=== PATIENT | female | born 1975 | race African-American/Black ===

== ENCOUNTER 2018-09-23 11:54 | Emergency (ER) | payer OTHER ==
[~2018-09-23] VITALS: Ht 177.8 cm; Wt 92.1 kg
[~2018-09-23 11:54] MED LIST: B-100 COMPLEX1 EAC1 PO; EVENING PRIMRO500 MG PO; GINSENG EXTRACT50 MG PO; IRON159 MG PO; MULTIVITAMINS PO; PROZAC
[2018-09-23] MEDS ORDERED: NIFEDIPINE ER30 M1 PO (12:03)
[2018-09-23 13:16] LABS: HEMATOCRIT 38.6 % (37.0-47.0); HEMOGLOBIN 13.3 gm/dL (12.0-15.0); MCHC 34.5 g/dL (28.0-37.0); MCV 89.8 fL (80.0-100.0); PLATELET COUNT 365 thou/uL (150-400); RDW 13.5 % (10.5-14.5); WBC 4.3 thou/uL (4.0-11.0)
[2018-09-23 13:19] LABS: ANION GAP 10 mmol/L (7-16); BUN 6 mg/dL (7-18); CALCIUM 9.5 mg/dL (8.5-10.1); CHLORIDE 104 mmol/L (98-107); CO2 24 mmol/L (21-32); CREATININE 0.7 mg/dL (0.6-1.0); GLUCOSE 90 mg/dL (74-106); POTASSIUM 3.9 mmol/L (3.5-5.1); SODIUM 138 mmol/L (136-145)
[2018-09-23 13:28] LABS: SGOT 21 U/L (15-37); SGPT 32 U/L (30-65); TOTAL BILIRUBIN 0.3 mg/dL (<0.1-1.0); TOTAL PROTEIN 8.3 g/dL (6.4-8.2); TROPONIN-I <0.06 ng/mL (<0.06)
[2018-09-23 13:51] LABS: ABSOLUTE NEUTROPHILS 1.5 thou/uL (1.4-8.2)
[2018-09-23 15:57] VITALS: BP 129/61
--- NOTE | 2018-09-24 08:19 | EKG ---
[place] [address] [facility] [place] [address] ELECTROCARDIOGRAM REPORT Name: DAVION CHANG [id number] Admission: 09/23/18 Attend Phys: Discharge: 09/23/18 Date of : 75 Report #: [id number] THIS REPORT FOR: //name// [facility] ED Test Date: 2018-09-23 Test Time: 12:06:18 Pat Name: DAVION CHANG Department: Room: Gender: F Outpatient Therapist: HARJIT : 1975 Requested By: Sarbjit Samano Order Number: [id number] MD: Gibran Torres Measurements Intervals [place] Rate: 62 P: 15 MA: 180 QRS: -2 QRSD: 89 T: 28 QT: 401 QTc: 408 Interpretive Statements Sinus rhythm Anteroseptal infarct, age indeterminate Compared to ECG 09/24/2013 09:30:06 Septal Q waves are now present Electronically Signed On 09-24-2018 8:18:45 [employer] by Gibran Torres [email or web address] <ELECTRONICALLY SIGNED> By: Gibran Torres MD, [facility] 09/24/1818 1206 120 Gibran Torres MD, [facility] /EPI
== END 2018-09-23 16:20 | disposition home or self-care (01) ==
LOC: ER 11:54
PROVIDERS: Emergency Medicine
DX: Q23.1 Congenital insufficiency of aortic valve (principal); R53.1 Weakness; R53.83 Other fatigue; R05 Cough; Z86.2 Personal history of diseases of the blood and blood-forming organs and certain disorders involving the immune mechanism; Z95.1 Presence of aortocoronary bypass graft